=== PATIENT | female | born 1955 | race African-American/Black ===

== ENCOUNTER 2019-09-23 01:50 | Inpatient (IN) | payer MEDICARE ==
[~2019-09-23] VITALS: Ht 162.6 cm; Wt 74.9 kg
[2019-09-23] VITALS (10 sets, daily range): BP systolic 134–200; BP diastolic 70–123
[2019-09-23 02:40] LABS: BASOPHILS % 0.6 % (0.0-2.0); EOSINOPHILS % 0.9 % (0.0-5.0); HEMOGLOBIN. 10.9 g/dL (12.0-16.0); LYMPHOCYTES % 12.6 % (20.0-50.0); MEAN CORPUSCULAR HEMOGLOBIN 30.4 pg (28.0-32.0); MEAN CORPUSCULAR VOLUME 92.2 fL (81.0-99.0); MEAN PLATELET VOLUME 9.4 fl (7.4-10.4); MONOCYTES % 4.6 % (2.0-8.0); NEUTROPHILS % 81.3 % (40.0-76.0); PLATELET 309 x1000/uL (130-400); RED BLOOD CELL COUNT 3.58 mill/uL (4.2-5.4); RED CELL DISTRIBUTION WIDTH 14.5 % (11.6-14.6)
[2019-09-23 02:44] LABS: CLARITY URINE CLOUDY (CLEAR); COLOR URINE YELLOW (YELLOW); KETONES URINE NEGATIVE (NEGATIVE); LEUKOCYTE ESTERASE URINE NEGATIVE (NEGATIVE); NITRITE URINE NEGATIVE (NEGATIVE); OCCULT BLOOD URINE 2+ (NEGATIVE); PROTEIN URINE 4+ (NEGATIVE); SPECIFIC GRAVITY URINE 1.029 (1.005-1.030)
[2019-09-23 02:44] LABS: CHLORIDE 112 mEq/L (98-107)
[2019-09-23 02:45] LABS: PROTHROMBIN TIME 11.3 sec (9.6-11.0)
[2019-09-23] MEDS ORDERED: ASPIRIN 325MG EC TABLET PO ONE (02:45)
[2019-09-23 02:49] LABS: ETHANOL BLOOD < 10 mg/dL
[2019-09-23 02:51] LABS: LDL CHOLESTEROL 71 mg/dL (5-100)
[2019-09-23] MEDS ORDERED: PIPERACILLIN/TAZOBACTAM 3.375GM/50ML PREMIX IV SCH (03:00)
[2019-09-23] MEDS ORDERED: VANCOMYCIN 1 G PREMIX 200 ML IV SCH (03:00)
[2019-09-23 03:30] LABS: *AMPHETAMINES SCREEN URINE NEGATIVE (NEGATIVE); *BARBITURATES SCREEN URINE NEGATIVE (NEGATIVE); *BENZODIAZEPINES SCREEN URINE NEGATIVE (NEGATIVE)
[2019-09-23 03:31] LABS: *COCAINE SCREEN URINE NEGATIVE (NEGATIVE); CANNABINOID URINE SCREEN NEGATIVE (NEGATIVE); METHADONE URINE SCREEN NEGATIVE (NEGATIVE); OPIATES URINE SCREEN NEGATIVE (NEGATIVE)
[2019-09-23 03:32] LABS: PHENCYCLIDINE URINE SCREEN NEGATIVE (NEGATIVE)
[2019-09-23] MEDS: HYDRALAZINE 20MG/ML VIAL IV PRN ×2 (04:39→20:17)
[2019-09-23] MEDS ORDERED: DEXTROSE 50% WATER 50ML SYRINGE IV PRN ×2 (05:00→06:45)
[2019-09-23] MEDS: INSULIN LISPRO 100 UNITS/ML SUBCUT SCH ×5 (05:49→22:48)
[2019-09-23] MEDS ORDERED: ACETAMINOPHEN 325MG TABLET PO PRN (06:45)
[2019-09-23] MEDS ORDERED: ONDANSETRON HCL 4MG/2ML INJ IV PRN (06:45)
[2019-09-23] MEDS ORDERED: BLOOD SUGAR DIAGNOSTIC STRIP TEST SCH (07:30)
[2019-09-23] MEDS ORDERED: INSULIN LISPRO 100 UNITS/ML SUBCUT SCH (08:00)
[2019-09-23] MEDS: BLOOD SUGAR DIAGNOSTIC STRIP TEST SCH ×4 (08:17→21:00)
[2019-09-23] MEDS ORDERED: ASPIRIN 325MG EC TABLET PO SCH (09:00)
[2019-09-23] MEDS: AMLODIPINE 10MG TABLET PO SCH (09:06)
[2019-09-23] MEDS: ASPIRIN 81MG TABLET PO SCH (09:08)
[2019-09-23 09:42] LABS: BASOPHILS % 0.6 % (0.0-2.0); EOSINOPHILS % 0.2 % (0.0-5.0); HEMATOCRIT. 33.6 % (36.0-48.0); HEMOGLOBIN. 11.2 g/dL (12.0-16.0); LYMPHOCYTES % 11.1 % (20.0-50.0); MEAN CORPUSCULAR VOLUME 92.6 fL (81.0-99.0); MEAN PLATELET VOLUME 9.4 fl (7.4-10.4); MONOCYTES % 4.6 % (2.0-8.0); NEUTROPHILS % 83.5 % (40.0-76.0); PLATELET 281 x1000/uL (130-400); RED BLOOD CELL COUNT 3.63 mill/uL (4.2-5.4); RED CELL DISTRIBUTION WIDTH 14.3 % (11.6-14.6)
[2019-09-23] MEDS: INSULIN GLARGINE UD 100 UNITS/ML SYR SUBCUT SCH ×2 (15:23→22:49)
[2019-09-23] MEDS: DEXT 5%/0.45% NACL 1000ML 1,000 ML IV SCH (15:25)
[2019-09-23] MEDS: CEFTRIAXONE 1 G PREMIX 50 ML IV SCH (15:25)
[2019-09-23] MEDS: ENOXAPARIN 30MG/0.3ML SYR SUBCUT SCH (15:25)
[2019-09-23] MEDS ORDERED: MORPHINE SULFATE 2 MG/ML CPJ (NOT FOR IM USE) IV PRN (19:00)
[2019-09-23] MEDS: MORPHINE SULFATE 2 MG/ML CPJ (NOT FOR IM USE) IV PRN (21:15)
[2019-09-23] MEDS: ATORVASTATIN CALCIUM 40MG TABLET PO SCH (22:34)
[2019-09-23] MEDS: CLONIDINE 0.1MG TABLET PO PRN (22:55)
[2019-09-24] VITALS (12 sets, daily range): BP systolic 126–183; BP diastolic 65–109
[2019-09-24] MEDS: HYDRALAZINE 20MG/ML VIAL IV PRN (03:29)
[2019-09-24] MEDS: DEXT 5%/0.45% NACL 1000ML 1,000 ML IV SCH ×2 (03:30→16:40)
[2019-09-24 06:22] LABS: BASOPHILS % 0.4 % (0.0-2.0); EOSINOPHILS % 0.6 % (0.0-5.0); HEMATOCRIT. 32.1 % (36.0-48.0); HEMOGLOBIN. 10.7 g/dL (12.0-16.0); LYMPHOCYTES % 12.3 % (20.0-50.0); MEAN CORPUSCULAR HEMOGLOBIN 30.8 pg (28.0-32.0); MEAN CORPUSCULAR VOLUME 92.5 fL (81.0-99.0); MEAN PLATELET VOLUME 9.7 fl (7.4-10.4); MONOCYTES % 4.8 % (2.0-8.0); NEUTROPHILS % 81.9 % (40.0-76.0); PLATELET 286 x1000/uL (130-400); RED BLOOD CELL COUNT 3.47 mill/uL (4.2-5.4); RED CELL DISTRIBUTION WIDTH 14.4 % (11.6-14.6)
[2019-09-24] MEDS: BLOOD SUGAR DIAGNOSTIC STRIP TEST SCH ×4 (07:30→21:25)
[2019-09-24] MEDS: CEFTRIAXONE 1 G PREMIX 50 ML IV SCH (09:29)
[2019-09-24] MEDS: ENOXAPARIN 30MG/0.3ML SYR SUBCUT SCH (09:30)
[2019-09-24] MEDS: ASPIRIN 81MG TABLET PO SCH (09:30)
[2019-09-24] MEDS: AMLODIPINE 10MG TABLET PO SCH (09:30)
[2019-09-24] MEDS: INSULIN LISPRO 100 UNITS/ML SUBCUT SCH ×4 (09:31→21:24)
[2019-09-24] MEDS: INSULIN GLARGINE UD 100 UNITS/ML SYR SUBCUT SCH ×2 (09:32→21:25)
[2019-09-24] MEDS ORDERED: HYDROCODONE/ACETAMINOPHEN 5/325MG TABLET PO PRN (11:15)
[2019-09-24] MEDS: HYDRALAZINE HCL 50MG TABLET PO SCH ×2 (19:01→21:26)
[2019-09-24] MEDS: MORPHINE SULFATE 2 MG/ML CPJ (NOT FOR IM USE) IV PRN (19:14)
[2019-09-24] MEDS: ATORVASTATIN CALCIUM 40MG TABLET PO SCH (21:25)
[2019-09-24] MEDS: CARVEDILOL 12.5MG TABLET PO SCH (21:26)
[2019-09-25] VITALS (12 sets, daily range): BP systolic 114–177; BP diastolic 56–128
[2019-09-25] MEDS: MORPHINE SULFATE 2 MG/ML CPJ (NOT FOR IM USE) IV PRN (06:01)
[2019-09-25 06:17] LABS: BASOPHILS % 0.8 % (0.0-2.0); EOSINOPHILS % 1.4 % (0.0-5.0); HEMATOCRIT. 32.4 % (36.0-48.0); HEMOGLOBIN. 10.8 g/dL (12.0-16.0); LYMPHOCYTES % 14.3 % (20.0-50.0); MEAN CORPUSCULAR HEMOGLOBIN 30.9 pg (28.0-32.0); MEAN CORPUSCULAR VOLUME 92.9 fL (81.0-99.0); MEAN PLATELET VOLUME 9.3 fl (7.4-10.4); MONOCYTES % 6.6 % (2.0-8.0); NEUTROPHILS % 76.9 % (40.0-76.0); PLATELET 299 x1000/uL (130-400); RED BLOOD CELL COUNT 3.48 mill/uL (4.2-5.4); RED CELL DISTRIBUTION WIDTH 14.5 % (11.6-14.6)
[2019-09-25] MEDS: BLOOD SUGAR DIAGNOSTIC STRIP TEST SCH ×4 (08:24→21:23)
[2019-09-25] MEDS ORDERED: DOCUSATE SODIUM 250MG CAPSULE PO SCH (09:00)
[2019-09-25] MEDS ORDERED: CLOPIDOGREL 75MG TABLET PO SCH (09:00)
[2019-09-25] MEDS: DOCUSATE SODIUM SUGAR FREE 100MG/10ML UDC NG SCH (10:15)
[2019-09-25] MEDS: CEFTRIAXONE 1 G PREMIX 50 ML IV SCH (10:21)
[2019-09-25] MEDS: DEXT 5%/0.45% NACL 1000ML 1,000 ML IV SCH ×2 (10:21→22:45)
[2019-09-25] MEDS: CARVEDILOL 12.5MG TABLET PO SCH ×2 (10:22→21:21)
[2019-09-25] MEDS: AMLODIPINE 10MG TABLET PO SCH (10:22)
[2019-09-25] MEDS: ENOXAPARIN 30MG/0.3ML SYR SUBCUT SCH (10:22)
[2019-09-25] MEDS: HYDRALAZINE HCL 50MG TABLET PO SCH (10:23)
[2019-09-25] MEDS: CLONIDINE 0.1MG TABLET PO PRN (10:23)
[2019-09-25] MEDS: ASPIRIN 81MG TABLET PO SCH (10:23)
[2019-09-25] MEDS: INSULIN LISPRO 100 UNITS/ML SUBCUT SCH ×4 (10:24→21:00)
[2019-09-25] MEDS: INSULIN GLARGINE UD 100 UNITS/ML SYR SUBCUT SCH ×2 (10:25→21:23)
[2019-09-25] MEDS ORDERED: HYDRALAZINE HCL 100MG TABLET PO SCH (12:00)
[2019-09-25] MEDS: HYDRALAZINE HCL 100MG TABLET PO SCH ×2 (14:00→21:20)
[2019-09-25] MEDS: PANTOPRAZOLE SODIUM 40 MG/VIAL IV SCH (21:19)
[2019-09-25] MEDS: ATORVASTATIN CALCIUM 40MG TABLET PO SCH (21:27)
[2019-09-26] VITALS (11 sets, daily range): BP systolic 108–159; BP diastolic 51–74
[2019-09-26 05:58] LABS: INR 1.1; PARTIAL THROMBOPLASTIN TIME 27.4 sec (23.4-31.0); PROTHROMBIN TIME 11.6 sec (9.6-11.0)
[2019-09-26] MEDS: HYDRALAZINE HCL 100MG TABLET PO SCH ×3 (06:14→21:38)
[2019-09-26 06:28] LABS: BASOPHILS % 0.5 % (0.0-2.0); EOSINOPHILS % 0.6 % (0.0-5.0); HEMATOCRIT. 31.4 % (36.0-48.0); HEMOGLOBIN. 10.5 g/dL (12.0-16.0); LYMPHOCYTES % 12.9 % (20.0-50.0); MEAN CORPUSCULAR HEMOGLOBIN 30.7 pg (28.0-32.0); MEAN CORPUSCULAR VOLUME 92.3 fL (81.0-99.0); MEAN PLATELET VOLUME 10.1 fl (7.4-10.4); MONOCYTES % 5.5 % (2.0-8.0); NEUTROPHILS % 80.5 % (40.0-76.0); PLATELET 273 x1000/uL (130-400); RED BLOOD CELL COUNT 3.41 mill/uL (4.2-5.4); RED CELL DISTRIBUTION WIDTH 14.3 % (11.6-14.6)
[2019-09-26] MEDS: BLOOD SUGAR DIAGNOSTIC STRIP TEST SCH ×3 (08:11→18:00)
[2019-09-26] MEDS: PANTOPRAZOLE SODIUM 40 MG/VIAL IV SCH ×2 (08:25→21:39)
[2019-09-26] MEDS: AMLODIPINE 10MG TABLET PO SCH (08:26)
[2019-09-26] MEDS: CARVEDILOL 12.5MG TABLET PO SCH ×2 (08:26→21:39)
[2019-09-26] MEDS: DOCUSATE SODIUM SUGAR FREE 100MG/10ML UDC NG SCH (08:33)
[2019-09-26] MEDS: INSULIN LISPRO 100 UNITS/ML SUBCUT SCH ×3 (08:37→18:00)
[2019-09-26] MEDS: INSULIN GLARGINE UD 100 UNITS/ML SYR SUBCUT SCH ×2 (10:47→21:59)
[2019-09-26] MEDS: CEFTRIAXONE 1 G PREMIX 50 ML IV SCH (11:13)
[2019-09-26] MEDS: DEXT 5%/0.45% NACL 1000ML 1,000 ML IV SCH (12:40)
[2019-09-26] MEDS ORDERED: MIDAZOLAM HCL 5 MG/5 ML VIAL ONE (15:46)
[2019-09-26] MEDS ORDERED: FENTANYL CITRATE/PF 50MCG/ML 2ML VIAL IV PRN (15:47)
[2019-09-26] MEDS ORDERED: FENTANYL CITRATE/PF 50MCG/ML 2ML VIAL ONE (15:47)
[2019-09-26] MEDS ORDERED: MIDAZOLAM HCL 5 MG/5 ML VIAL IV PRN (15:48)
[2019-09-26] MEDS: ATORVASTATIN CALCIUM 40MG TABLET PO SCH (21:38)
[2019-09-27] VITALS (12 sets, daily range): BP systolic 106–137; BP diastolic 45–74
[2019-09-27] MEDS: INSULIN LISPRO 100 UNITS/ML SUBCUT SCH ×4 (00:36→18:19)
[2019-09-27] MEDS: HYDRALAZINE HCL 100MG TABLET PO SCH ×3 (05:38→21:37)
[2019-09-27] MEDS: DEXT 5%/0.45% NACL 1000ML 1,000 ML IV SCH (05:39)
[2019-09-27] MEDS: BLOOD SUGAR DIAGNOSTIC STRIP TEST SCH ×4 (05:39→18:20)
[2019-09-27 06:26] LABS: BASOPHILS % 0.2 % (0.0-2.0); EOSINOPHILS % 0.4 % (0.0-5.0); HEMOGLOBIN. 9.6 g/dL (12.0-16.0); LYMPHOCYTES % 7.5 % (20.0-50.0); MEAN CORPUSCULAR HEMOGLOBIN 30.7 pg (28.0-32.0); MEAN CORPUSCULAR VOLUME 93.1 fL (81.0-99.0); MEAN PLATELET VOLUME 10.3 fl (7.4-10.4); MONOCYTES % 5.6 % (2.0-8.0); NEUTROPHILS % 86.3 % (40.0-76.0); PLATELET 254 x1000/uL (130-400); RED BLOOD CELL COUNT 3.11 mill/uL (4.2-5.4); RED CELL DISTRIBUTION WIDTH 14.9 % (11.6-14.6)
[2019-09-27] MEDS: DOCUSATE SODIUM SUGAR FREE 100MG/10ML UDC NG SCH (09:12)
[2019-09-27] MEDS: AMLODIPINE 10MG TABLET PO SCH (09:13)
[2019-09-27] MEDS: CARVEDILOL 12.5MG TABLET PO SCH ×2 (11:04→21:36)
[2019-09-27] MEDS: INSULIN GLARGINE UD 100 UNITS/ML SYR SUBCUT SCH ×2 (11:06→21:39)
[2019-09-27] MEDS: SODIUM CHLORIDE 0.45% 1,000 ML IV SCH (11:22)
[2019-09-27] MEDS: CEFTRIAXONE 1 G PREMIX 50 ML IV SCH (13:53)
[2019-09-27] MEDS: ATORVASTATIN CALCIUM 40MG TABLET PO SCH (21:36)
[2019-09-28] VITALS (13 sets, daily range): BP systolic 115–158; BP diastolic 36–73
[2019-09-28] MEDS: INSULIN LISPRO 100 UNITS/ML SUBCUT SCH ×5 (00:57→23:59)
[2019-09-28] MEDS: SODIUM CHLORIDE 0.45% 1,000 ML IV SCH ×3 (02:03→21:07)
[2019-09-28] MEDS: HYDRALAZINE HCL 100MG TABLET PO SCH ×3 (05:47→21:04)
[2019-09-28] MEDS: BLOOD SUGAR DIAGNOSTIC STRIP TEST SCH ×4 (05:48→17:17)
[2019-09-28 07:05] LABS: BASOPHILS % 0.8 % (0.0-2.0); EOSINOPHILS % 1.9 % (0.0-5.0); HEMATOCRIT. 27.9 % (36.0-48.0); HEMOGLOBIN. 9.3 g/dL (12.0-16.0); LYMPHOCYTES % 13.7 % (20.0-50.0); MEAN CORPUSCULAR HEMOGLOBIN 30.4 pg (28.0-32.0); MEAN CORPUSCULAR VOLUME 91.5 fL (81.0-99.0); MEAN PLATELET VOLUME 10.4 fl (7.4-10.4); MONOCYTES % 6.7 % (2.0-8.0); NEUTROPHILS % 76.9 % (40.0-76.0); PLATELET 269 x1000/uL (130-400); RED BLOOD CELL COUNT 3.05 mill/uL (4.2-5.4); RED CELL DISTRIBUTION WIDTH 14.5 % (11.6-14.6)
[2019-09-28] MEDS: ENOXAPARIN 30MG/0.3ML SYR SUBCUT SCH (09:23)
[2019-09-28] MEDS: CARVEDILOL 12.5MG TABLET PO SCH ×2 (09:24→21:04)
[2019-09-28] MEDS: CEFTRIAXONE 1 G PREMIX 50 ML IV SCH (09:24)
[2019-09-28] MEDS: AMLODIPINE 10MG TABLET PO SCH (09:25)
[2019-09-28] MEDS: DOCUSATE SODIUM SUGAR FREE 100MG/10ML UDC NG SCH (09:25)
[2019-09-28] MEDS: INSULIN GLARGINE UD 100 UNITS/ML SYR SUBCUT SCH ×2 (13:06→21:05)
[2019-09-28] MEDS: ATORVASTATIN CALCIUM 40MG TABLET PO SCH (21:04)
[2019-09-28] MEDS: LISINOPRIL 2.5MG TABLET PO SCH (21:15)
[2019-09-29] VITALS (14 sets, daily range): BP systolic 100–153; BP diastolic 43–77
[2019-09-29] MEDS ORDERED: PIPERACILLIN/TAZOBACTAM 3.375 G in DEXT 5% WATER 100 ML IV SCH (00:30)
[2019-09-29] MEDS: PIPERACILLIN/TAZOBACTAM 2.25 G in DEXTROSE 5% WATER 50 ML IV SCH ×3 (02:06→17:42)
[2019-09-29] MEDS: HYDRALAZINE HCL 100MG TABLET PO SCH ×3 (06:13→21:08)
[2019-09-29] MEDS: INSULIN LISPRO 100 UNITS/ML SUBCUT SCH ×3 (06:15→13:32)
[2019-09-29] MEDS: BLOOD SUGAR DIAGNOSTIC STRIP TEST SCH ×4 (06:16→17:06)
[2019-09-29 07:05] LABS: BASOPHILS % 0.5 % (0.0-2.0); EOSINOPHILS % 1.6 % (0.0-5.0); HEMATOCRIT. 27.4 % (36.0-48.0); LYMPHOCYTES % 11.5 % (20.0-50.0); MEAN CORPUSCULAR HEMOGLOBIN 30.5 pg (28.0-32.0); MEAN CORPUSCULAR VOLUME 92.4 fL (81.0-99.0); MEAN PLATELET VOLUME 10.3 fl (7.4-10.4); MONOCYTES % 7.6 % (2.0-8.0); NEUTROPHILS % 78.8 % (40.0-76.0); PLATELET 260 x1000/uL (130-400); RED BLOOD CELL COUNT 2.96 mill/uL (4.2-5.4); RED CELL DISTRIBUTION WIDTH 14.7 % (11.6-14.6)
[2019-09-29] MEDS: LISINOPRIL 2.5MG TABLET PO SCH (09:36)
[2019-09-29] MEDS: DOCUSATE SODIUM SUGAR FREE 100MG/10ML UDC NG SCH (09:36)
[2019-09-29] MEDS: CARVEDILOL 12.5MG TABLET PO SCH ×2 (09:37→21:07)
[2019-09-29] MEDS: ENOXAPARIN 30MG/0.3ML SYR SUBCUT SCH (09:38)
[2019-09-29] MEDS: INSULIN GLARGINE UD 100 UNITS/ML SYR SUBCUT SCH (10:21)
[2019-09-29] MEDS: SODIUM CHLORIDE 0.45% 1,000 ML IV SCH (13:32)
[2019-09-29] MEDS: ATORVASTATIN CALCIUM 40MG TABLET PO SCH (21:07)
[2019-09-29] MEDS ORDERED: INSULIN GLARGINE UD 100 UNITS/ML SYR SUBCUT SCH (22:00)
[2019-09-30] VITALS (16 sets, daily range): BP systolic 109–186; BP diastolic 40–91
[2019-09-30] MEDS: BLOOD SUGAR DIAGNOSTIC STRIP TEST SCH ×4 (00:04→17:21)
[2019-09-30] MEDS: INSULIN LISPRO 100 UNITS/ML SUBCUT SCH ×4 (00:04→18:35)
[2019-09-30] MEDS: PIPERACILLIN/TAZOBACTAM 2.25 G in DEXTROSE 5% WATER 50 ML IV SCH ×3 (03:09→17:21)
[2019-09-30] MEDS: SODIUM CHLORIDE 0.45% 1,000 ML IV SCH (03:11)
[2019-09-30] MEDS: HYDRALAZINE HCL 100MG TABLET PO SCH ×3 (06:31→22:14)
[2019-09-30 07:07] LABS: BASOPHILS % 0.4 % (0.0-2.0); EOSINOPHILS % 2.4 % (0.0-5.0); HEMATOCRIT. 28.6 % (36.0-48.0); HEMOGLOBIN. 9.3 g/dL (12.0-16.0); LYMPHOCYTES % 14.4 % (20.0-50.0); MEAN CORPUSCULAR HEMOGLOBIN 29.7 pg (28.0-32.0); MEAN CORPUSCULAR VOLUME 91.7 fL (81.0-99.0); NEUTROPHILS % 74.8 % (40.0-76.0); PLATELET 301 x1000/uL (130-400); RED BLOOD CELL COUNT 3.12 mill/uL (4.2-5.4); RED CELL DISTRIBUTION WIDTH 14.5 % (11.6-14.6)
[2019-09-30] MEDS: LISINOPRIL 2.5MG TABLET PO SCH (11:11)
[2019-09-30] MEDS: DOCUSATE SODIUM SUGAR FREE 100MG/10ML UDC NG SCH (11:12)
[2019-09-30] MEDS: ENOXAPARIN 30MG/0.3ML SYR SUBCUT SCH (11:13)
[2019-09-30] MEDS: CARVEDILOL 12.5MG TABLET PO SCH (22:14)
[2019-09-30] MEDS: ATORVASTATIN CALCIUM 40MG TABLET PO SCH (22:14)
[2019-09-30] MEDS: INSULIN GLARGINE UD 100 UNITS/ML SYR SUBCUT SCH (22:16)
[2019-10-01] VITALS (12 sets, daily range): BP systolic 105–185; BP diastolic 48–77
[2019-10-01] MEDS: PIPERACILLIN/TAZOBACTAM 2.25 G in DEXTROSE 5% WATER 50 ML IV SCH ×3 (01:48→17:54)
[2019-10-01] MEDS: INSULIN LISPRO 100 UNITS/ML SUBCUT SCH ×4 (01:49→17:56)
[2019-10-01] MEDS: SODIUM CHLORIDE 0.45% 1,000 ML IV SCH (05:07)
[2019-10-01] MEDS: BLOOD SUGAR DIAGNOSTIC STRIP TEST SCH ×5 (05:55→23:56)
[2019-10-01] MEDS: HYDRALAZINE HCL 100MG TABLET PO SCH ×3 (05:55→21:42)
[2019-10-01 06:52] LABS: BASOPHILS % 0.8 % (0.0-2.0); EOSINOPHILS % 2.1 % (0.0-5.0); HEMATOCRIT. 27.5 % (36.0-48.0); HEMOGLOBIN. 9.2 g/dL (12.0-16.0); LYMPHOCYTES % 12.9 % (20.0-50.0); MEAN CORPUSCULAR HEMOGLOBIN 30.9 pg (28.0-32.0); MEAN CORPUSCULAR VOLUME 91.8 fL (81.0-99.0); MEAN PLATELET VOLUME 9.7 fl (7.4-10.4); MONOCYTES % 7.4 % (2.0-8.0); NEUTROPHILS % 76.8 % (40.0-76.0); PLATELET 291 x1000/uL (130-400); RED CELL DISTRIBUTION WIDTH 14.7 % (11.6-14.6)
[2019-10-01] MEDS: CARVEDILOL 12.5MG TABLET PO SCH ×2 (09:39→21:42)
[2019-10-01] MEDS: LISINOPRIL 2.5MG TABLET PO SCH (09:39)
[2019-10-01] MEDS: ENOXAPARIN 30MG/0.3ML SYR SUBCUT SCH (09:40)
[2019-10-01] MEDS: DOCUSATE SODIUM SUGAR FREE 100MG/10ML UDC NG SCH (09:40)
[2019-10-01] MEDS: INSULIN GLARGINE UD 100 UNITS/ML SYR SUBCUT SCH ×2 (10:33→22:02)
[2019-10-01] MEDS: ATORVASTATIN CALCIUM 40MG TABLET PO SCH (21:43)
[2019-10-02] VITALS (7 sets, daily range): BP systolic 115–175; BP diastolic 52–74
[2019-10-02] MEDS: PIPERACILLIN/TAZOBACTAM 2.25 G in DEXTROSE 5% WATER 50 ML IV SCH ×2 (02:22→09:01)
[2019-10-02] MEDS: INSULIN LISPRO 100 UNITS/ML SUBCUT SCH ×3 (02:24→11:58)
[2019-10-02] MEDS: BLOOD SUGAR DIAGNOSTIC STRIP TEST SCH ×2 (05:28→11:51)
[2019-10-02] MEDS: HYDRALAZINE HCL 100MG TABLET PO SCH (05:28)
[2019-10-02] MEDS: LISINOPRIL 2.5MG TABLET PO SCH (08:50)
[2019-10-02] MEDS: ENOXAPARIN 30MG/0.3ML SYR SUBCUT SCH (08:51)
[2019-10-02] MEDS: CARVEDILOL 12.5MG TABLET PO SCH (08:51)
[2019-10-02] MEDS: DOCUSATE SODIUM SUGAR FREE 100MG/10ML UDC NG SCH (08:52)
[2019-10-02] MEDS: INSULIN GLARGINE UD 100 UNITS/ML SYR SUBCUT SCH (09:01)
== END 2019-10-02 12:40 | DRG 871 ==
LOC: ER 01:50 → 5EST 03:27 → EDBEDREQTM 03:29 → EDBEDREQ 03:29 → ENRESERV 04:12 → 5EST 09-26 16:12
PROVIDERS: ADMIT Internal Medicine; ATTEND Internal Medicine
PROC: 4A00X4Z Measurement of Central Nervous Electrical Activity, External Approach (ICD-10-PCS; 2019-09-25)
PROC: 0DH63UZ Insertion of Feeding Device into Stomach, Percutaneous Approach (ICD-10-PCS; principal; 2019-09-26)
DX: A41.9 Sepsis, unspecified organism (principal); E43 Unspecified severe protein-calorie malnutrition; N17.0 Acute kidney failure with tubular necrosis; I63.9 Cerebral infarction, unspecified; G93.41 Metabolic encephalopathy; N39.0 Urinary tract infection, site not specified; I50.22 Chronic systolic (congestive) heart failure; I42.9 Cardiomyopathy, unspecified; I13.0 Hypertensive heart and chronic kidney disease with heart failure and stage 1 through stage 4 chronic kidney disease, or unspecified chronic kidney disease; N04.9 Nephrotic syndrome with unspecified morphologic changes; R13.10 Dysphagia, unspecified; E87.8 Other disorders of electrolyte and fluid balance, not elsewhere classified; D64.9 Anemia, unspecified; E11.21 Type 2 diabetes mellitus with diabetic nephropathy; E11.65 Type 2 diabetes mellitus with hyperglycemia; E11.22 Type 2 diabetes mellitus with diabetic chronic kidney disease; G93.89 Other specified disorders of brain; N18.9 Chronic kidney disease, unspecified; K29.60 Other gastritis without bleeding; R13.12 Dysphagia, oropharyngeal phase; R62.7 Adult failure to thrive; Z74.01 Bed confinement status; Z68.28 Body mass index [BMI] 28.0-28.9, adult
CPT/HCPCS: 36415; 70551; 71045; 71250; 74176; 76770; 80048; 80053; 80061; 80305; 80320; 81003; 82570; 82962; 83036; 83721; 83880; 84145; 84156; 84443; 84484; 85025; 92610; 93005; 93306; 93880; 95816; 96365; 97162; 97166; 99291; C9113; J0360; J0696; J1650; J1815; J2250; J2270; J2543; J3010; J3370; J7060; G0480

== ENCOUNTER 2020-01-08 12:11 | Inpatient (IN) | payer MEDICARE ==
[~2020-01-08] VITALS: Ht 167.6 cm; Wt 65.8 kg
[2020-01-08] MEDS ORDERED: SODIUM CHLORIDE 0.9% 1,000 ML IV ONE (13:00)
[2020-01-08 13:26] LABS: BASOPHILS % 0.3 % (0.0-2.0); EOSINOPHILS % 1.4 % (0.0-5.0); HEMOGLOBIN. 7.7 g/dL (12.0-16.0); LYMPHOCYTES % 14.8 % (20.0-50.0); MEAN CORPUSCULAR HEMOGLOBIN 32.4 pg (28.0-32.0); MEAN CORPUSCULAR VOLUME 96.7 fL (81.0-99.0); MEAN PLATELET VOLUME 9.2 fl (7.4-10.4); MONOCYTES % 6.8 % (2.0-8.0); NEUTROPHILS % 76.7 % (40.0-76.0); PLATELET 228 x1000/uL (130-400); RED BLOOD CELL COUNT 2.38 mill/uL (4.2-5.4); RED CELL DISTRIBUTION WIDTH 13.8 % (11.6-14.6)
[2020-01-08 13:31] LABS: CHLORIDE 107 mEq/L (98-107)
[2020-01-08 13:34] LABS: INR 1.1; PROTHROMBIN TIME 11.9 sec (9.6-11.0)
[2020-01-08 14:22] LABS: CLARITY URINE TURBID (CLEAR); COLOR URINE YELLOW (YELLOW); KETONES URINE NEGATIVE (NEGATIVE); LEUKOCYTE ESTERASE URINE 3+ (NEGATIVE); NITRITE URINE NEGATIVE (NEGATIVE); OCCULT BLOOD URINE NEGATIVE (NEGATIVE); PH URINE 5.5 (4.5-8.0); PROTEIN URINE 2+ (NEGATIVE); SPECIFIC GRAVITY URINE 1.015 (1.005-1.030); UROBILINOGEN URINE 0.2 E.U./dL (0.2-1.0)
[2020-01-08] MEDS ORDERED: CEFTRIAXONE 1 G PREMIX 50 ML IV ONE (17:45)
[2020-01-08] MEDS ORDERED: MAGNESIUM/ALUMINUM HYDROXIDE/SIMETHICONE 30ML UDC PO PRN (19:15)
[2020-01-08] MEDS ORDERED: CEFTRIAXONE 1 G PREMIX 50 ML IV SCH (19:15)
[2020-01-08] MEDS ORDERED: DEXTROSE 50% WATER 50ML SYRINGE IV PRN ×2 (19:15)
[2020-01-08] MEDS ORDERED: ONDANSETRON HCL 4MG/2ML INJ IV PRN (19:15)
[2020-01-08 19:48] LABS: TOTAL IRON BINDING CAPACITY 217 ug/dL (250-450)
[2020-01-08] MEDS: BLOOD SUGAR DIAGNOSTIC STRIP TEST SCH (21:00)
[2020-01-08] MEDS: INSULIN LISPRO 100 UNITS/ML SUBCUT SCH (22:31)
[2020-01-09] VITALS (7 sets, daily range): BP systolic 135–178; BP diastolic 58–82
[2020-01-09] MEDS ORDERED: CARV25TA47 MT (00:22)
[2020-01-09] MEDS: SODIUM CHLORIDE 0.9% 1,000 ML IV SCH ×2 (01:02→17:19)
[2020-01-09] MEDS: BLOOD SUGAR DIAGNOSTIC STRIP TEST SCH ×4 (06:12→20:59)
[2020-01-09] MEDS: INSULIN LISPRO 100 UNITS/ML SUBCUT SCH ×4 (06:19→20:58)
[2020-01-09 07:25] LABS: BASOPHILS % 0.2 % (0.0-2.0); EOSINOPHILS % 1.9 % (0.0-5.0); HEMOGLOBIN. 7.4 g/dL (12.0-16.0); LYMPHOCYTES % 15.5 % (20.0-50.0); MEAN CORPUSCULAR HEMOGLOBIN 32.2 pg (28.0-32.0); MEAN CORPUSCULAR VOLUME 95.4 fL (81.0-99.0); MEAN PLATELET VOLUME 9.9 fl (7.4-10.4); MONOCYTES % 7.2 % (2.0-8.0); NEUTROPHILS % 75.2 % (40.0-76.0); PLATELET 228 x1000/uL (130-400); RED CELL DISTRIBUTION WIDTH 13.9 % (11.6-14.6)
[2020-01-09] MEDS: PANTOPRAZOLE SODIUM 40 MG/VIAL IV SCH (09:06)
[2020-01-09] MEDS ORDERED: MAGNESIUM HYDROXIDE 400MG/5ML 30ML UDC PO PRN (13:45)
[2020-01-09] MEDS ORDERED: BISACODYL 10MG SUPP PR PRN (13:45)
[2020-01-09] MEDS: DOCUSATE SODIUM SUGAR FREE 100MG/10ML UDC GT SCH (15:45)
[2020-01-09] MEDS: CEFTRIAXONE 1 G PREMIX 50 ML IV SCH (17:45)
[2020-01-09] MEDS ORDERED: CEFTRIAXONE 1 G PREMIX 50 ML IV SCH (18:00)
[2020-01-10 00:13] VITALS: BP 157/55
[2020-01-10] MEDS: ACETAMINOPHEN 650MG/20.3ML UDC GT PRN (00:48)
[2020-01-10 04:00] VITALS: BP 131/48
[2020-01-10] MEDS: BLOOD SUGAR DIAGNOSTIC STRIP TEST SCH ×4 (06:16→20:55)
[2020-01-10 08:00] VITALS: BP 170/65
[2020-01-10] MEDS: INSULIN LISPRO 100 UNITS/ML SUBCUT SCH ×4 (08:22→20:55)
[2020-01-10] MEDS: DOCUSATE SODIUM SUGAR FREE 100MG/10ML UDC GT SCH (08:26)
[2020-01-10] MEDS: PANTOPRAZOLE SODIUM 40 MG/VIAL IV SCH (08:26)
[2020-01-10 09:05] LABS: BASOPHILS % 0.5 % (0.0-2.0); EOSINOPHILS % 1.7 % (0.0-5.0); HEMATOCRIT. 21.1 % (36.0-48.0); LYMPHOCYTES % 11.9 % (20.0-50.0); MEAN CORPUSCULAR HEMOGLOBIN 31.3 pg (28.0-32.0); MEAN CORPUSCULAR VOLUME 96.3 fL (81.0-99.0); MEAN PLATELET VOLUME 9.1 fl (7.4-10.4); MONOCYTES % 7.5 % (2.0-8.0); NEUTROPHILS % 78.4 % (40.0-76.0); PLATELET 242 x1000/uL (130-400); RED BLOOD CELL COUNT 2.19 mill/uL (4.2-5.4); RED CELL DISTRIBUTION WIDTH 13.9 % (11.6-14.6)
[2020-01-10] MEDS: SODIUM CHLORIDE 0.9% 1,000 ML IV SCH (09:05)
[2020-01-10 09:10] LABS: HEMOGLOBIN. 6.9 g/dL (12.0-16.0)
[2020-01-10 09:20] LABS: PHOSPHORUS 3.4 mg/dL (2.5-4.9)
[2020-01-10 12:00] VITALS: BP 153/59
[2020-01-10] MEDS: IRON SUCROSE COMPLEX 100 MG/5 ML ML IV SCH (13:55)
[2020-01-10 16:00] VITALS: BP 153/63
[2020-01-10] MEDS: CEFTRIAXONE 1 G PREMIX 50 ML IV SCH (18:09)
[2020-01-10 20:00] VITALS: BP 169/59
[2020-01-10] MEDS: CLONIDINE 0.1MG TABLET PO PRN (22:17)
[2020-01-11] VITALS: BP 159/59
[2020-01-11] MEDS: SODIUM CHLORIDE 0.9% 1,000 ML IV SCH ×2 (01:45→17:34)
[2020-01-11 04:00] VITALS: BP 192/76
[2020-01-11] MEDS: BLOOD SUGAR DIAGNOSTIC STRIP TEST SCH ×4 (06:17→21:08)
[2020-01-11] MEDS: CLONIDINE 0.1MG TABLET PO PRN (06:18)
[2020-01-11 08:00] VITALS: BP 153/63
[2020-01-11] MEDS: PANTOPRAZOLE SODIUM 40 MG/VIAL IV SCH (08:39)
[2020-01-11] MEDS: DOCUSATE SODIUM SUGAR FREE 100MG/10ML UDC GT SCH (08:39)
[2020-01-11] MEDS: INSULIN LISPRO 100 UNITS/ML SUBCUT SCH ×4 (08:41→21:09)
[2020-01-11] MEDS: IRON SUCROSE COMPLEX 100 MG/5 ML ML IV SCH (11:46)
[2020-01-11 12:00] VITALS: BP 130/50
[2020-01-11 15:25] LABS: CHLORIDE 121 mEq/L (98-107)
[2020-01-11 15:29] LABS: BASOPHILS % 0.4 % (0.0-2.0); EOSINOPHILS % 2.8 % (0.0-5.0); HEMATOCRIT. 21.6 % (36.0-48.0); LYMPHOCYTES % 17.2 % (20.0-50.0); MEAN CORPUSCULAR HEMOGLOBIN 31.2 pg (28.0-32.0); MEAN CORPUSCULAR VOLUME 96.5 fL (81.0-99.0); MEAN PLATELET VOLUME 9.2 fl (7.4-10.4); MONOCYTES % 7.5 % (2.0-8.0); NEUTROPHILS % 72.1 % (40.0-76.0); PLATELET 245 x1000/uL (130-400); RED BLOOD CELL COUNT 2.24 mill/uL (4.2-5.4); RED CELL DISTRIBUTION WIDTH 13.9 % (11.6-14.6)
[2020-01-11 16:00] VITALS: BP 160/58
[2020-01-11] MEDS: CEFTRIAXONE 1 G PREMIX 50 ML IV SCH (17:34)
[2020-01-11 20:00] VITALS: BP 127/80
[2020-01-12] VITALS (10 sets, daily range): BP systolic 138–200; BP diastolic 58–85
[2020-01-12] MEDS: ACETAMINOPHEN 650MG/20.3ML UDC GT PRN (00:44)
[2020-01-12] MEDS: CLONIDINE 0.1MG TABLET PO PRN ×3 (00:44→16:16)
[2020-01-12] MEDS: BLOOD SUGAR DIAGNOSTIC STRIP TEST SCH ×4 (06:39→21:24)
[2020-01-12] MEDS: PANTOPRAZOLE SODIUM 40 MG/VIAL IV SCH (08:23)
[2020-01-12] MEDS: DOCUSATE SODIUM SUGAR FREE 100MG/10ML UDC GT SCH (08:23)
[2020-01-12] MEDS: INSULIN LISPRO 100 UNITS/ML SUBCUT SCH ×4 (08:25→21:25)
[2020-01-12] MEDS: SODIUM CHLORIDE 0.9% 1,000 ML IV SCH (10:15)
[2020-01-12] MEDS: IRON SUCROSE COMPLEX 100 MG/5 ML ML IV SCH (10:21)
[2020-01-12] MEDS ORDERED: HYDRALAZINE HCL 100MG TABLET PO NR (13:00)
[2020-01-12] MEDS ORDERED: AMLODIPINE 5MG TABLET PO SCH (13:30)
[2020-01-12] MEDS ORDERED: GENTAMICIN 120MG PREMIX 100 ML IV NR (14:00)
[2020-01-12] MEDS: AMLODIPINE 5MG TABLET PO SCH (21:24)
[2020-01-12] MEDS: HYDRALAZINE HCL 100MG TABLET PO SCH (21:24)
[2020-01-13] VITALS: BP 170/66
[2020-01-13] MEDS ORDERED: GENTAMICIN 80MG PREMIX 100 ML IV SCH (02:00)
[2020-01-13 04:00] VITALS: BP 170/64
[2020-01-13] MEDS: HYDRALAZINE HCL 100MG TABLET PO SCH ×3 (05:07→21:50)
[2020-01-13 06:50] LABS: GENTAMICIN RANDOM 5.5 ug/mL
[2020-01-13] MEDS: BLOOD SUGAR DIAGNOSTIC STRIP TEST SCH ×4 (07:01→21:50)
[2020-01-13 08:00] VITALS: BP 165/99
[2020-01-13] MEDS: PANTOPRAZOLE SODIUM 40 MG/VIAL IV SCH (08:56)
[2020-01-13] MEDS: AMLODIPINE 5MG TABLET PO SCH ×2 (08:57→21:50)
[2020-01-13] MEDS: DOCUSATE SODIUM SUGAR FREE 100MG/10ML UDC GT SCH (08:57)
[2020-01-13] MEDS: INSULIN LISPRO 100 UNITS/ML SUBCUT SCH ×4 (08:59→21:53)
[2020-01-13] MEDS ORDERED: POTASSIUM CHLORIDE 20MEQ/PACKET PEG SCH (10:30)
[2020-01-13] MEDS: POTASSIUM CHLORIDE 20MEQ/PACKET GT SCH ×2 (11:55→13:00)
[2020-01-13 12:00] VITALS: BP 156/52
[2020-01-13] MEDS: ACETAMINOPHEN 650MG/20.3ML UDC GT PRN (17:29)
[2020-01-13 20:00] VITALS: BP 176/61
[2020-01-14] VITALS: BP 159/61
[2020-01-14] MEDS: GENTAMICIN 80MG PREMIX 100 ML IV SCH (01:37)
[2020-01-14 04:00] VITALS: BP 173/67
[2020-01-14] MEDS: CLONIDINE 0.1MG TABLET PO PRN (05:17)
[2020-01-14 06:09] VITALS: BP 159/68
[2020-01-14] MEDS: HYDRALAZINE HCL 100MG TABLET PO SCH ×3 (06:18→21:10)
[2020-01-14] MEDS: BLOOD SUGAR DIAGNOSTIC STRIP TEST SCH ×4 (06:46→21:10)
[2020-01-14 08:00] VITALS: BP 152/64
[2020-01-14] MEDS: INSULIN LISPRO 100 UNITS/ML SUBCUT SCH ×4 (08:18→21:09)
[2020-01-14 08:50] LABS: BASOPHILS % 2.5 % (0.0-2.0); EOSINOPHILS % 1.3 % (0.0-5.0); LYMPHOCYTES % 17.9 % (20.0-50.0); MEAN CORPUSCULAR HEMOGLOBIN 31.4 pg (28.0-32.0); MEAN CORPUSCULAR VOLUME 101.4 fL (81.0-99.0); MEAN PLATELET VOLUME 9.2 fl (7.4-10.4); MONOCYTES % 6.6 % (2.0-8.0); NEUTROPHILS % 71.7 % (40.0-76.0); PLATELET 272 x1000/uL (130-400); RED BLOOD CELL COUNT 2.13 mill/uL (4.2-5.4); RED CELL DISTRIBUTION WIDTH 15.2 % (11.6-14.6)
[2020-01-14 08:57] LABS: HEMATOCRIT. 21.6 % (36.0-48.0); HEMOGLOBIN. 6.7 g/dL (12.0-16.0)
[2020-01-14] MEDS: ACETAMINOPHEN 650MG/20.3ML UDC GT PRN (09:32)
[2020-01-14] MEDS: DOCUSATE SODIUM SUGAR FREE 100MG/10ML UDC GT SCH (09:32)
[2020-01-14] MEDS: AMLODIPINE 5MG TABLET PO SCH ×2 (09:32→21:10)
[2020-01-14] MEDS: PANTOPRAZOLE SODIUM 40 MG/VIAL IV SCH (09:33)
[2020-01-14] MEDS ORDERED: INSULIN GLARGINE UD 100 UNITS/ML SYR SUBCUT ONE (14:00)
[2020-01-14] MEDS: CLONIDINE 0.1MG TABLET PO SCH ×2 (14:18→21:10)
[2020-01-14 16:00] VITALS: BP 148/64
[2020-01-14 20:00] VITALS: BP 156/69
[2020-01-14] MEDS: INSULIN GLARGINE UD 100 UNITS/ML SYR SUBCUT SCH (21:48)
[2020-01-15] VITALS (7 sets, daily range): BP systolic 127–182; BP diastolic 54–67
[2020-01-15] MEDS: GENTAMICIN 80MG PREMIX 100 ML IV SCH (03:08)
[2020-01-15] MEDS: ACETAMINOPHEN 650MG/20.3ML UDC GT PRN (05:17)
[2020-01-15] MEDS: HYDRALAZINE HCL 100MG TABLET PO SCH ×3 (05:18→22:50)
[2020-01-15] MEDS: BLOOD SUGAR DIAGNOSTIC STRIP TEST SCH ×4 (06:16→21:00)
[2020-01-15 06:25] LABS: BASOPHILS % 0.4 % (0.0-2.0); EOSINOPHILS % 3.8 % (0.0-5.0); HEMATOCRIT. 21.1 % (36.0-48.0); LYMPHOCYTES % 18.3 % (20.0-50.0); MEAN CORPUSCULAR HEMOGLOBIN 31.5 pg (28.0-32.0); MEAN CORPUSCULAR VOLUME 96.9 fL (81.0-99.0); MEAN PLATELET VOLUME 8.7 fl (7.4-10.4); MONOCYTES % 6.7 % (2.0-8.0); NEUTROPHILS % 70.8 % (40.0-76.0); PLATELET 271 x1000/uL (130-400); RED BLOOD CELL COUNT 2.18 mill/uL (4.2-5.4); RED CELL DISTRIBUTION WIDTH 14.1 % (11.6-14.6)
[2020-01-15 07:27] LABS: GENTAMICIN RANDOM 6.1 ug/mL
[2020-01-15 07:31] LABS: HEMOGLOBIN. 6.9 g/dL (12.0-16.0)
[2020-01-15] MEDS: DOCUSATE SODIUM SUGAR FREE 100MG/10ML UDC GT SCH (09:07)
[2020-01-15] MEDS: CLONIDINE 0.1MG TABLET PO SCH ×2 (09:07→22:49)
[2020-01-15] MEDS: AMLODIPINE 5MG TABLET PO SCH ×2 (09:08→22:50)
[2020-01-15] MEDS: PANTOPRAZOLE SODIUM 40 MG/VIAL IV SCH (09:08)
[2020-01-15] MEDS: INSULIN LISPRO 100 UNITS/ML SUBCUT SCH ×4 (09:10→22:48)
[2020-01-15] MEDS ORDERED: IRON SUCROSE COMPLEX 100 MG/5 ML ML IV SCH (10:00)
[2020-01-15] MEDS: INSULIN GLARGINE UD 100 UNITS/ML SYR SUBCUT SCH ×2 (11:56→22:47)
== END 2020-01-16 00:40 | DRG 871 ==
LOC: ER 12:11 → 6WST 18:59 → EDBEDREQ 19:02 → EDBEDREQSVC 19:02 → ENRESERV 20:20
PROVIDERS: ADMIT Family Medicine Adult Medicine; ATTEND Family Medicine Adult Medicine
DX: A41.9 Sepsis, unspecified organism (principal); L89.513 Pressure ulcer of right ankle, stage 3; N17.0 Acute kidney failure with tubular necrosis; L89.623 Pressure ulcer of left heel, stage 3; K29.71 Gastritis, unspecified, with bleeding; I13.0 Hypertensive heart and chronic kidney disease with heart failure and stage 1 through stage 4 chronic kidney disease, or unspecified chronic kidney disease; E44.1 Mild protein-calorie malnutrition; N39.0 Urinary tract infection, site not specified; D62 Acute posthemorrhagic anemia; E11.22 Type 2 diabetes mellitus with diabetic chronic kidney disease; I50.9 Heart failure, unspecified; B96.20 Unspecified Escherichia coli [E. coli] as the cause of diseases classified elsewhere; N18.9 Chronic kidney disease, unspecified; E11.65 Type 2 diabetes mellitus with hyperglycemia; E87.6 Hypokalemia; B96.1 Klebsiella pneumoniae [K. pneumoniae] as the cause of diseases classified elsewhere; D63.8 Anemia in other chronic diseases classified elsewhere; L85.3 Xerosis cutis; Z20.828 Contact with and (suspected) exposure to other viral communicable diseases; E11.51 Type 2 diabetes mellitus with diabetic peripheral angiopathy without gangrene; Z93.1 Gastrostomy status; Z86.73 Personal history of transient ischemic attack (TIA), and cerebral infarction without residual deficits; Z68.23 Body mass index [BMI] 23.0-23.9, adult
CPT/HCPCS: 36415; 71045; 76770; 80048; 80053; 80061; 80170; 81003; 82270; 82728; 82962; 83036; 83540; 83550; 83735; 84100; 84145; 84443; 84484; 85025; 86850; 86900; 86920; 87077; 87186; 92610; 93005; 93923; 93970; 97162; 97165; 99285; C9113; J0696; J1580; J1815; J7030; U0003-CS

== ENCOUNTER 2020-01-28 03:21 | Inpatient (IN) | payer MEDICARE, MEDICAID ==
[~2020-01-28] VITALS: Ht 162.6 cm; Wt 106.6 kg
[~2020-01-28 03:21] MED LIST: CARV25TA47 MT
[2020-01-28] MEDS ORDERED: SODIUM CHLORIDE 0.9% 1,000 ML IV ONE (04:02)
[2020-01-28 04:10] LABS: BASOPHILS % 0.3 % (0.0-2.0); HEMATOCRIT. 21.9 % (36.0-48.0); LYMPHOCYTES % 15.8 % (20.0-50.0); MEAN CORPUSCULAR VOLUME 97.3 fL (81.0-99.0); MEAN PLATELET VOLUME 9.6 fl (7.4-10.4); MONOCYTES % 4.4 % (2.0-8.0); NEUTROPHILS % 77.5 % (40.0-76.0); PLATELET 324 x1000/uL (130-400); RED BLOOD CELL COUNT 2.25 mill/uL (4.2-5.4); RED CELL DISTRIBUTION WIDTH 15.4 % (11.6-14.6)
[2020-01-28 04:13] LABS: CHLORIDE 118 mEq/L (98-107)
[2020-01-28 04:45] LABS: BG BASE EXCESS -1.3 mmol/L (-2.0-2.0); BG CARBOXYHEMOGLOBIN 0.3 % (0.5-1.5); BG DEOXYHEMOGLOBIN 2.6 % (0.0-5.0); BG FRACTION INSPIRED OXYGEN 21; BG HCO3 ACT 21.8 mmol/L (22.0-26.0); BG METHEMOGLOBIN 0.5 % (0.0-1.5); BG OXYGEN SATURATION 97.4 % (92.0-98.5); BG OXYHEMOGLOBIN 96.6 % (94.0-97.0); BG PCO2 29.5 mmHg (35.0-45.0); BG PH 7.486 (7.350-7.450); BG PO2 92.2 mmHg (75.0-100.0); BG SAMPLE SITE RIGHT RADIAL; BG TOTAL HEMOGLOBIN 7.3 g/dL (12.0-18.0); BG VENT MODE ROOM AIR
[2020-01-28] MEDS ORDERED: VANCOMYCIN 1 G PREMIX 200 ML IV SCH (05:00)
[2020-01-28] MEDS ORDERED: PIPERACILLIN/TAZ 3.375G PREMIX 50 ML IV SCH (05:00)
[2020-01-28 05:09] LABS: CLARITY URINE CLOUDY (CLEAR); COLOR URINE YELLOW (YELLOW); KETONES URINE NEGATIVE (NEGATIVE); LEUKOCYTE ESTERASE URINE 1+ (NEGATIVE); NITRITE URINE NEGATIVE (NEGATIVE); OCCULT BLOOD URINE NEGATIVE (NEGATIVE); PH URINE 5.5 (4.5-8.0); PROTEIN URINE 3+ (NEGATIVE); SPECIFIC GRAVITY URINE 1.016 (1.005-1.030); UROBILINOGEN URINE 0.2 E.U./dL (0.2-1.0)
[2020-01-28 08:45] VITALS: BP 179/72
[2020-01-28] MEDS ORDERED: DEXTROSE 50% WATER 50ML SYRINGE IV PRN (10:00)
[2020-01-28] MEDS ORDERED: CLONIDINE 0.1MG TABLET PO SCH (10:00)
[2020-01-28] MEDS ORDERED: HYDRALAZINE HCL 100MG TABLET PO SCH (10:30)
[2020-01-28] MEDS ORDERED: ACETAMINOPHEN 325MG TABLET PO PRN (10:30)
[2020-01-28] MEDS ORDERED: ONDANSETRON HCL 4MG/2ML INJ IV PRN (10:30)
[2020-01-28 12:00] VITALS: BP 169/58
[2020-01-28] MEDS: BLOOD SUGAR DIAGNOSTIC STRIP TEST SCH ×3 (13:22→20:29)
[2020-01-28] MEDS: AMLODIPINE 10MG TABLET PO SCH (13:24)
[2020-01-28] MEDS: SODIUM CHLORIDE 0.45% 1,000 ML IV SCH ×2 (13:25→20:28)
[2020-01-28] MEDS: INSULIN LISPRO 100 UNITS/ML SUBCUT SCH ×3 (14:20→20:42)
[2020-01-28] MEDS ORDERED: CLONIDINE 0.1MG TABLET PO PRN (15:15)
[2020-01-28 16:00] VITALS: BP 157/60
[2020-01-28] MEDS: HYDRALAZINE HCL 100MG TABLET PO SCH ×2 (17:29→20:24)
[2020-01-28 20:00] VITALS: BP 165/59
[2020-01-28] MEDS: CLONIDINE 0.1MG TABLET PO SCH (20:24)
[2020-01-29 00:31] VITALS: BP 165/66
[2020-01-29 04:00] VITALS: BP 164/64
[2020-01-29] MEDS: CLONIDINE 0.1MG TABLET PO SCH ×3 (06:13→19:57)
[2020-01-29] MEDS: HYDRALAZINE HCL 100MG TABLET PO SCH ×3 (06:14→19:57)
[2020-01-29 06:54] LABS: BASOPHILS % 0.5 % (0.0-2.0); EOSINOPHILS % 2.4 % (0.0-5.0); MEAN CORPUSCULAR VOLUME 96.6 fL (81.0-99.0); MONOCYTES % 4.9 % (2.0-8.0); NEUTROPHILS % 77.2 % (40.0-76.0); PLATELET 302 x1000/uL (130-400); RED BLOOD CELL COUNT 2.12 mill/uL (4.2-5.4); RED CELL DISTRIBUTION WIDTH 15.5 % (11.6-14.6)
[2020-01-29 07:30] LABS: HEMATOCRIT. 20.5 % (36.0-48.0); HEMOGLOBIN. 6.6 g/dL (12.0-16.0)
[2020-01-29] MEDS: BLOOD SUGAR DIAGNOSTIC STRIP TEST SCH ×4 (07:49→19:56)
[2020-01-29 08:00] VITALS: BP 150/56
[2020-01-29] MEDS: AMLODIPINE 10MG TABLET PO SCH (09:51)
[2020-01-29] MEDS: INSULIN LISPRO 100 UNITS/ML SUBCUT SCH ×4 (09:53→20:26)
[2020-01-29] MEDS: MEROPENEM 1,000 MG in SODIUM CHLORIDE 0.9% 100 ML IV SCH ×2 (11:14→19:56)
[2020-01-29] MEDS: SODIUM CHLORIDE 0.45% 1,000 ML IV SCH (11:22)
[2020-01-29 12:00] VITALS: BP 151/56
[2020-01-29] MEDS: IRON SUCROSE COMPLEX 100 MG/5 ML ML IV SCH (12:59)
[2020-01-29 16:00] VITALS: BP 138/52
[2020-01-29 20:48] VITALS: BP 148/58
[2020-01-30] VITALS (7 sets, daily range): BP systolic 145–165; BP diastolic 61–77
[2020-01-30] MEDS: SODIUM CHLORIDE 0.45% 1,000 ML IV SCH ×3 (01:44→22:07)
[2020-01-30] MEDS: CLONIDINE 0.1MG TABLET PO SCH ×2 (04:31→13:26)
[2020-01-30] MEDS: HYDRALAZINE HCL 100MG TABLET PO SCH ×3 (04:31→21:52)
[2020-01-30] MEDS: BLOOD SUGAR DIAGNOSTIC STRIP TEST SCH ×4 (04:32→21:52)
[2020-01-30] MEDS: INSULIN LISPRO 100 UNITS/ML SUBCUT SCH ×4 (05:15→21:52)
[2020-01-30] MEDS: MEROPENEM 1,000 MG in SODIUM CHLORIDE 0.9% 100 ML IV SCH (08:21)
[2020-01-30] MEDS: IRON SUCROSE COMPLEX 100 MG/5 ML ML IV SCH (08:21)
[2020-01-30] MEDS: AMLODIPINE 10MG TABLET PO SCH (08:29)
[2020-01-30] MEDS ORDERED: INSULIN GLARGINE UD 100 UNITS/ML SYR SUBCUT NR (13:00)
[2020-01-30 16:09] LABS: BASOPHILS % 0.4 % (0.0-2.0); EOSINOPHILS % 2.1 % (0.0-5.0); MEAN CORPUSCULAR HEMOGLOBIN 30.4 pg (28.0-32.0); MEAN CORPUSCULAR VOLUME 96.2 fL (81.0-99.0); MEAN PLATELET VOLUME 9.8 fl (7.4-10.4); MONOCYTES % 6.9 % (2.0-8.0); NEUTROPHILS % 76.6 % (40.0-76.0); PLATELET 302 x1000/uL (130-400); RED BLOOD CELL COUNT 2.18 mill/uL (4.2-5.4); RED CELL DISTRIBUTION WIDTH 15.6 % (11.6-14.6)
[2020-01-30] MEDS: CLONIDINE 0.2MG TABLET PO SCH ×2 (16:09→21:53)
[2020-01-30 16:13] LABS: HEMOGLOBIN. 6.6 g/dL (12.0-16.0)
[2020-01-30] MEDS ORDERED: EPOETIN ALFA 4000UNITS/ML VIAL SUBCUT NR (18:00)
[2020-01-30] MEDS: INSULIN GLARGINE UD 100 UNITS/ML SYR SUBCUT SCH (23:08)
[2020-01-31] VITALS (12 sets, daily range): BP systolic 129–168; BP diastolic 59–77
[2020-01-31] MEDS: BLOOD SUGAR DIAGNOSTIC STRIP TEST SCH ×4 (06:24→20:44)
[2020-01-31] MEDS: HYDRALAZINE HCL 100MG TABLET PO SCH ×3 (06:25→22:00)
[2020-01-31] MEDS: CLONIDINE 0.2MG TABLET PO SCH ×3 (06:25→22:00)
[2020-01-31] MEDS: INSULIN LISPRO 100 UNITS/ML SUBCUT SCH ×5 (06:26→21:13)
[2020-01-31] MEDS: IRON SUCROSE COMPLEX 100 MG/5 ML ML IV SCH (08:44)
[2020-01-31] MEDS: AMLODIPINE 10MG TABLET PO SCH (08:44)
[2020-01-31] MEDS: INSULIN GLARGINE UD 100 UNITS/ML SYR SUBCUT SCH ×2 (11:46→22:07)
[2020-01-31] MEDS: SODIUM CHLORIDE 0.45% 1,000 ML IV SCH (17:39)
[2020-01-31] MEDS ORDERED: DEXT 5%/0.45% NACL 1000ML 1,000 ML IV SCH (20:30)
[2020-02-01] VITALS (12 sets, daily range): BP systolic 131–164; BP diastolic 54–79
[2020-02-01] MEDS: CLONIDINE 0.2MG TABLET PO SCH ×3 (06:04→21:12)
[2020-02-01] MEDS: HYDRALAZINE HCL 100MG TABLET PO SCH ×3 (06:04→21:12)
[2020-02-01] MEDS: BLOOD SUGAR DIAGNOSTIC STRIP TEST SCH ×4 (06:31→21:07)
[2020-02-01] MEDS: INSULIN LISPRO 100 UNITS/ML SUBCUT SCH ×4 (06:32→21:14)
[2020-02-01 07:28] LABS: TOTAL IRON BINDING CAPACITY 127 ug/dL (250-450)
[2020-02-01] MEDS: AMLODIPINE 10MG TABLET PO SCH (10:37)
[2020-02-01] MEDS: INSULIN GLARGINE UD 100 UNITS/ML SYR SUBCUT SCH ×2 (12:10→21:17)
[2020-02-02] VITALS (12 sets, daily range): BP systolic 123–179; BP diastolic 58–78
[2020-02-02] MEDS: CLONIDINE 0.2MG TABLET PO SCH ×3 (05:47→21:02)
[2020-02-02] MEDS: HYDRALAZINE HCL 100MG TABLET PO SCH ×3 (05:47→21:03)
[2020-02-02] MEDS: BLOOD SUGAR DIAGNOSTIC STRIP TEST SCH ×4 (05:47→21:05)
[2020-02-02 07:08] LABS: BASOPHILS % 0.3 % (0.0-2.0); EOSINOPHILS % 1.9 % (0.0-5.0); HEMATOCRIT. 21.3 % (36.0-48.0); LYMPHOCYTES % 11.7 % (20.0-50.0); MEAN CORPUSCULAR HEMOGLOBIN 30.9 pg (28.0-32.0); MEAN CORPUSCULAR VOLUME 96.4 fL (81.0-99.0); MEAN PLATELET VOLUME 10.1 fl (7.4-10.4); MONOCYTES % 5.4 % (2.0-8.0); NEUTROPHILS % 80.7 % (40.0-76.0); PLATELET 365 x1000/uL (130-400); RED BLOOD CELL COUNT 2.21 mill/uL (4.2-5.4); RED CELL DISTRIBUTION WIDTH 15.4 % (11.6-14.6)
[2020-02-02] MEDS: INSULIN LISPRO 100 UNITS/ML SUBCUT SCH ×4 (07:20→21:04)
[2020-02-02 07:51] LABS: HEMOGLOBIN. 6.8 g/dL (12.0-16.0)
[2020-02-02] MEDS: AMLODIPINE 10MG TABLET PO SCH (10:20)
[2020-02-02] MEDS: INSULIN GLARGINE UD 100 UNITS/ML SYR SUBCUT SCH ×2 (10:21→21:04)
[2020-02-03] VITALS (11 sets, daily range): BP systolic 114–151; BP diastolic 53–73
[2020-02-03] MEDS: HYDRALAZINE HCL 100MG TABLET PO SCH ×3 (05:41→21:36)
[2020-02-03] MEDS: CLONIDINE 0.2MG TABLET PO SCH (05:41)
[2020-02-03] MEDS: BLOOD SUGAR DIAGNOSTIC STRIP TEST SCH ×3 (05:41→21:48)
[2020-02-03 06:54] LABS: BASOPHILS % 0.8 % (0.0-2.0); EOSINOPHILS % 1.2 % (0.0-5.0); LYMPHOCYTES % 13.4 % (20.0-50.0); MEAN CORPUSCULAR HEMOGLOBIN 31.2 pg (28.0-32.0); MEAN CORPUSCULAR VOLUME 97.2 fL (81.0-99.0); MEAN PLATELET VOLUME 10.2 fl (7.4-10.4); MONOCYTES % 6.7 % (2.0-8.0); NEUTROPHILS % 77.9 % (40.0-76.0); PLATELET 329 x1000/uL (130-400); RED BLOOD CELL COUNT 2.11 mill/uL (4.2-5.4); RED CELL DISTRIBUTION WIDTH 15.8 % (11.6-14.6)
[2020-02-03 07:36] LABS: HEMATOCRIT. 20.5 % (36.0-48.0); HEMOGLOBIN. 6.6 g/dL (12.0-16.0)
[2020-02-03] MEDS: AMLODIPINE 10MG TABLET PO SCH (08:00)
[2020-02-03] MEDS: INSULIN LISPRO 100 UNITS/ML SUBCUT SCH ×3 (08:04→21:37)
[2020-02-03] MEDS: INSULIN GLARGINE UD 100 UNITS/ML SYR SUBCUT SCH ×2 (10:12→23:08)
[2020-02-03] MEDS ORDERED: FERR325T6 MT (12:04)
[2020-02-03] MEDS: PANTOPRAZOLE 40MG DR TABLET PO SCH ×2 (12:46→21:34)
[2020-02-03] MEDS: CARVEDILOL 12.5MG TABLET PO SCH ×2 (12:47→21:36)
[2020-02-03] MEDS: SUCRALFATE 1 G/10 ML UDC PO SCH (21:36)
[2020-02-04] VITALS (11 sets, daily range): BP systolic 112–140; BP diastolic 55–60
[2020-02-04] MEDS: HYDRALAZINE HCL 100MG TABLET PO SCH ×2 (06:38→16:30)
[2020-02-04] MEDS: PANTOPRAZOLE 40MG DR TABLET PO SCH (06:38)
[2020-02-04] MEDS: SUCRALFATE 1 G/10 ML UDC PO SCH ×3 (06:39→16:30)
[2020-02-04] MEDS: BLOOD SUGAR DIAGNOSTIC STRIP TEST SCH ×3 (06:39→16:50)
[2020-02-04] MEDS: INSULIN LISPRO 100 UNITS/ML SUBCUT SCH ×3 (06:39→18:34)
[2020-02-04] MEDS: CARVEDILOL 12.5MG TABLET PO SCH (09:00)
[2020-02-04] MEDS: INSULIN GLARGINE UD 100 UNITS/ML SYR SUBCUT SCH (10:39)
[2020-02-04] MEDS ORDERED: BISACODYL 10MG SUPP PR PRN (11:00)
[2020-02-04] MEDS ORDERED: SORBITOL 70% SOLN 30ML PO NR (11:00)
[2020-02-04] MEDS ORDERED: EPOETIN ALFA 10000UNITS/ML VIAL SUBCUT NR (21:00)
== END 2020-02-04 19:32 | DRG 871 ==
LOC: ER 03:37 → 7WST 04:48 → EDBEDREQ 04:55 → EDBEDREQTM 04:55 → EDBEDREQSVC 04:55 → CANRESERV 07:29 → ENRESERV 07:29 → 6WST 23:11 → 3WST 01-30 20:19
PROVIDERS: ADMIT Internal Medicine Nephrology; ATTEND Family Medicine Adult Medicine
DX: A41.9 Sepsis, unspecified organism (principal); E43 Unspecified severe protein-calorie malnutrition; J96.90 Respiratory failure, unspecified, unspecified whether with hypoxia or hypercapnia; N17.0 Acute kidney failure with tubular necrosis; G93.41 Metabolic encephalopathy; E87.0 Hyperosmolality and hypernatremia; N39.0 Urinary tract infection, site not specified; Z68.41 Body mass index [BMI] 40.0-44.9, adult; E87.1 Hypo-osmolality and hyponatremia; Z53.1 Procedure and treatment not carried out because of patient's decision for reasons of belief and group pressure; D64.9 Anemia, unspecified; E87.8 Other disorders of electrolyte and fluid balance, not elsewhere classified; R47.02 Dysphasia; E11.51 Type 2 diabetes mellitus with diabetic peripheral angiopathy without gangrene; I12.9 Hypertensive chronic kidney disease with stage 1 through stage 4 chronic kidney disease, or unspecified chronic kidney disease; E11.22 Type 2 diabetes mellitus with diabetic chronic kidney disease; L85.3 Xerosis cutis; N18.9 Chronic kidney disease, unspecified; L89.150 Pressure ulcer of sacral region, unstageable; E86.1 Hypovolemia; L89.622 Pressure ulcer of left heel, stage 2; L89.512 Pressure ulcer of right ankle, stage 2; I69.320 Aphasia following cerebral infarction; Z93.1 Gastrostomy status; Z79.899 Other long term (current) drug therapy; Z03.818 Encounter for observation for suspected exposure to other biological agents ruled out
CPT/HCPCS: 36415; 36600; 71045; 76770; 80048; 80053; 81003; 82040; 82375; 82728; 82805; 82962; 83540; 83550; 83605; 83880; 84134; 84145; 84484; 85025; 86850; 86900; 86920; 93005; 97162; 99291; J0885; J1815; J2185; J2543; J3370; J7030; J7050; U0003-CS